=== PATIENT | male | born 1940 | race Caucasian/White ===

== ENCOUNTER 2021-03-04 16:02 | Emergency (ER) | payer MEDICARE ==
[~2021-03-04] VITALS: Ht 185.4 cm; Wt 79.5 kg
[~2021-03-04 16:02] MED LIST: FLO0.4C PO; OMEP-84 PO; ZOC40T PO
--- NOTE | 2021-03-04 18:24 | NUR ---
[phone] DUKE AT [facility] CAN BE REACHED TO NOTIFY IF PATIENT IS DISCHARGED AND HEADED BACK TO FACILITY. PATIENT WAS ATTEMPTING TO GET OUT OF BED- EASILY REORIENTED. HAS LEFT FOR NOW BUT STATES SHE CAN BE REACHED FOR RIDE BACK IF PATIENT IS BEING DISCHARGED.
[2021-03-04 19:46] VITALS: BP 139/93
== END 2021-03-04 19:48 | disposition home or self-care (01) ==
LOC: ER 16:02
DX: M54.2 Cervicalgia (principal); R51.9 Headache, unspecified; G31.83 Neurocognitive disorder with Lewy bodies; F02.80 Dementia in other diseases classified elsewhere, unspecified severity, without behavioral disturbance, psychotic disturbance, mood disturbance, and anxiety; E78.00 Pure hypercholesterolemia, unspecified; G89.29 Other chronic pain; N40.0 Benign prostatic hyperplasia without lower urinary tract symptoms; F03.90 Unspecified dementia, unspecified severity, without behavioral disturbance, psychotic disturbance, mood disturbance, and anxiety; Z90.49 Acquired absence of other specified parts of digestive tract; Z98.890 Other specified postprocedural states; V29.9XXA Motorcycle rider (driver) (passenger) injured in unspecified traffic accident, initial encounter; Z91.81 History of falling; Y93.89 Activity, other specified; Y92.89 Other specified places as the place of occurrence of the external cause; Y99.8 Other external cause status
CPT/HCPCS: 70450; 72125; 99285

== ENCOUNTER 2021-07-11 17:30 | Emergency (ER) | payer MEDICARE ==
[~2021-07-11] VITALS: Ht 182.9 cm; Wt 86.4 kg
[~2021-07-11 17:30] MED LIST changes: +CARB1TAB23 PO; +ESCI-8 PO; -FLO0.4C PO; -OMEP-84 PO; -ZOC40T PO
--- NOTE | 2021-07-11 20:10 | NUR ---
PER [employer] IS [employer]ORT [employer]. [facility] FOR [employer] - AWAITING C/B
--- NOTE | 2021-07-11 20:14 | NUR ---
KAIDEN NICE WITHIN THE HOUR.
[2021-07-11 21:11] VITALS: BP 112/63
== END 2021-07-11 21:18 | disposition home or self-care (01) ==
LOC: ER 17:30
DX: S70.12XA Contusion of left thigh, initial encounter (principal); M25.551 Pain in right hip; G20 Parkinson's disease; E78.00 Pure hypercholesterolemia, unspecified; G89.29 Other chronic pain; Z90.49 Acquired absence of other specified parts of digestive tract; Z90.89 Acquired absence of other organs; Z98.890 Other specified postprocedural states; Z88.8 Allergy status to other drugs, medicaments and biological substances; Z79.899 Other long term (current) drug therapy; W19.XXXA Unspecified fall, initial encounter; Y93.89 Activity, other specified; Y92.89 Other specified places as the place of occurrence of the external cause; Y99.8 Other external cause status
CPT/HCPCS: 72170; 73551; 99284

== ENCOUNTER 2021-11-07 14:08 | Emergency (ER) | payer MEDICARE ==
[~2021-11-07] VITALS: Ht 185.4 cm; Wt 100.0 kg
[2021-11-07] MEDS ORDERED: iohexol 350MG/ML 100ml bottle IV ONE (14:14)
--- NOTE | 2021-11-07 14:45 | NUR ---
TELE NEURO CONSULT DONE, STROKE NURSE AT BEDSIDE
[2021-11-07 15:15] LABS: APTT 31 SECONDS (22-32)
[2021-11-07 15:16] LABS: ALANINE AMINOTRANSFERASE 9 U/L (12-78); ALBUMIN 3.3 G/DL (3.4-5.0); ALBUMIN/GLOBULIN RATIO 1.2 (1.1-1.5); ALKALINE PHOSPHATASE 82 IU/L (46-116); ANION GAP 5 (8-16); ASPARTATE AMINO TRANSFERASE 13 U/L (10-37); BILIRUBIN,TOTAL 0.7 MG/DL (0.1-1.0); BLOOD UREA NITROGEN 17 MG/DL (7-18); CALCIUM 8.1 MG/DL (8.5-10.1); CHLORIDE 107 MMOL/L (99-107); CREATININE 0.81 MG/DL (0.60-1.10); GLUCOSE 96 MG/DL (70-104); POTASSIUM 4.2 MMOL/L (3.5-5.1); SODIUM 141 MMOL/L (135-145); TOTAL CARBON DIOXIDE 28.6 MMOL/L (24-32); TOTAL PROTEIN 6.1 G/DL (6.4-8.2); eGFR > 90 ML/MIN
--- NOTE | 2021-11-07 15:19 | NUR ---
STROKE ALERT LIFE PER DR. MORRIS 1972
[2021-11-07 15:25] LABS: BASOPHILS % (AUTO) 0.4 % (0-1); EOSINOPHILS # (AUTO) 0.1 X10'3 (0-0.9); EOSINOPHILS % (AUTO) 1.7 % (0-6); HEMATOCRIT 38.9 % (42.0-52.0); HEMOGLOBIN 12.6 g/dl (14.0-17.9); LYMPHOCYTES # (AUTO) 0.6 X10'3 (1.1-4.8); LYMPHOCYTES % (AUTO) 15.3 % (21-51); MEAN CORPUSCULAR HEMOGLOBIN 27.2 PG (27.0-31.0); MEAN CORPUSCULAR HGB CONC 32.4 g/dL (33.0-36.5); MEAN CORPUSCULAR VOLUME 83.7 FL (78-98); MEAN PLATELET VOLUME 7.9 FL (7.4-10.4); MONOCYTES # (AUTO) 0.3 X10'3 (0-0.9); MONOCYTES % (AUTO) 8.6 % (2-12); NEUTROPHILS # (AUTO) 2.9 X10'3 (1.8-7.7); PLATELET COUNT 182 X10'3 (140-440); RED BLOOD COUNT 4.65 X10'6 (4.70-6.10); WHITE BLOOD COUNT 3.9 X10'3 (4.5-11.0)
[2021-11-07 18:26] VITALS: BP 127/82
== END 2021-11-07 18:28 | disposition home or self-care (01) ==
LOC: ER 14:08
DX: R53.1 Weakness (principal); R41.0 Disorientation, unspecified; G20 Parkinson's disease; E78.00 Pure hypercholesterolemia, unspecified; G89.29 Other chronic pain; Z90.49 Acquired absence of other specified parts of digestive tract; Z90.89 Acquired absence of other organs; Z98.890 Other specified postprocedural states; Z88.8 Allergy status to other drugs, medicaments and biological substances; Z79.899 Other long term (current) drug therapy
CPT/HCPCS: 36415; 70450; 70496; 70498; 71045; 80053; 84484; 85025; 85610; 85730; 93005; 99285; Q9967

== ENCOUNTER 2021-11-10 19:37 | Inpatient (IN) | payer MEDICARE ==
[~2021-11-10] VITALS: Ht 182.9 cm; Wt 84.1 kg
[2021-11-10] MEDS ORDERED: iohexol 350MG/ML 100ml bottle IV ONE (19:41)
[2021-11-10 19:58] LABS: BASOPHILS % (AUTO) 0.5 % (0-1); EOSINOPHILS # (AUTO) 0.1 X10'3 (0-0.9); EOSINOPHILS % (AUTO) 2.8 % (0-6); HEMATOCRIT 36.5 % (42.0-52.0); HEMOGLOBIN 12.2 g/dl (14.0-17.9); LYMPHOCYTES # (AUTO) 0.9 X10'3 (1.1-4.8); LYMPHOCYTES % (AUTO) 21.5 % (21-51); MEAN CORPUSCULAR HEMOGLOBIN 27.7 PG (27.0-31.0); MEAN CORPUSCULAR HGB CONC 33.6 g/dL (33.0-36.5); MEAN CORPUSCULAR VOLUME 82.6 FL (78-98); MEAN PLATELET VOLUME 7.6 FL (7.4-10.4); MONOCYTES # (AUTO) 0.4 X10'3 (0-0.9); MONOCYTES % (AUTO) 9.3 % (2-12); NEUTROPHILS # (AUTO) 2.7 X10'3 (1.8-7.7); NEUTROPHILS % (AUTO) 65.9 % (42-75); PLATELET COUNT 185 X10'3 (140-440); RED BLOOD COUNT 4.41 X10'6 (4.70-6.10); WHITE BLOOD COUNT 4.1 X10'3 (4.5-11.0)
[2021-11-10 20:09] LABS: ALANINE AMINOTRANSFERASE 7 U/L (12-78); ALBUMIN 3.4 G/DL (3.4-5.0); ALBUMIN/GLOBULIN RATIO 1.3 (1.1-1.5); ALKALINE PHOSPHATASE 72 IU/L (46-116); ANION GAP 7 (8-16); ASPARTATE AMINO TRANSFERASE 13 U/L (10-37); BILIRUBIN,TOTAL 0.8 MG/DL (0.1-1.0); BLOOD UREA NITROGEN 19 MG/DL (7-18); BUN/CREATININE RATIO 21.3 (5.4-32.0); CALCIUM 8.7 MG/DL (8.5-10.1); CHLORIDE 106 MMOL/L (99-107); CREATININE 0.89 MG/DL (0.60-1.10); GLUCOSE 112 MG/DL (70-104); SODIUM 140 MMOL/L (135-145); TOTAL CARBON DIOXIDE 27.5 MMOL/L (24-32); eGFR 82 ML/MIN
[2021-11-10 20:10] LABS: APTT 30 SECONDS (22-32)
[2021-11-11] MEDS ORDERED: magnesium 2GM in 50ml NS 50 ML IV PRN (00:05)
[2021-11-11] MEDS ORDERED: acetaminophen 325mg tablet PO PRN (00:05)
[2021-11-11] MEDS: normal saline 1000ml 1,000 ML IV SCH ×2 (00:05→15:15)
[2021-11-11] MEDS ORDERED: mag hydrox/Alum hydrox/simeth 30ml oral suspension PO PRN (00:05)
[2021-11-11] MEDS ORDERED: potassium Cl 20 mEq SR tablet PO PRN ×2 (00:05)
[2021-11-11] MEDS ORDERED: ondansetron/PF 4mg/2ml inj IV PRN (00:05)
[2021-11-11] MEDS ORDERED: potassium CL 10mEq/100ml bag 100 ML IV PRN (00:05)
[2021-11-11] MEDS ORDERED: magnesium hydroxide 30ml (MOM) UD suspension PO PRN (00:05)
[2021-11-11] MEDS ORDERED: magnesium 4gm in 100ml NS 100 ML IV PRN (00:05)
[2021-11-11] MEDS ORDERED: magnesium Cl slow-release 64mg tablet PO PRN (00:05)
[2021-11-11] MEDS ORDERED: QUET25TA36 PO (00:30)
[2021-11-11] MEDS ORDERED: FLO0.4C PO (00:30)
[2021-11-11] MEDS ORDERED: heparin, porcine 5000 units/ml vial SQ SCH (08:00)
[2021-11-11] MEDS ORDERED: aspirin 81mg, enteric-coated 1 TAB TABLET.DR PO SCH (08:00)
[2021-11-11] MEDS ORDERED: K and/or MAG REPLACEMENT MC SCH (08:00)
--- NOTE | 2021-11-11 08:00 | NUR ---
Pt was incont. of urine. He is confused to date, president, and location. Speech is random. Follows commands for a short amount of time. He likes to put both legs up in the air. Placed a ruiz for a staight cath but kept it in due to pt having a residual of 800ml of hue urine. UA sent to the lab.
[2021-11-11 09:12] LABS: CLARITY,URINE CLEAR (Clear); COLOR,URINE YELLOW (Yellow); GLUCOSE, URINE NEGATIVE (Neg); KETONES,URINE NEGATIVE (Neg); LEUKOCYTE ESTERASE ,URINE NEGATIVE (Neg); NITRITES, URINE NEGATIVE (Neg); OCCULT BLOOD,URINE NEGATIVE (Neg); PH,URINE 6.5 (4.8-8.0); PROTEIN,URINE NEGATIVE (Neg); UROBILINOGEN,URINE 0.2 E.U/dL (0.2-1.0)
[2021-11-11 09:13] LABS: UA COLLECTION TYPE FOLEY CATH
[2021-11-11 09:14] LABS: BASOPHILS % (AUTO) 0.6 % (0-1); EOSINOPHILS # (AUTO) 0.1 X10'3 (0-0.9); HEMATOCRIT 39.3 % (42.0-52.0); HEMOGLOBIN 12.9 g/dl (14.0-17.9); LYMPHOCYTES # (AUTO) 0.7 X10'3 (1.1-4.8); LYMPHOCYTES % (AUTO) 16.7 % (21-51); MEAN CORPUSCULAR HEMOGLOBIN 27.2 PG (27.0-31.0); MEAN CORPUSCULAR HGB CONC 32.8 g/dL (33.0-36.5); MEAN CORPUSCULAR VOLUME 82.8 FL (78-98); MEAN PLATELET VOLUME 7.8 FL (7.4-10.4); MONOCYTES # (AUTO) 0.3 X10'3 (0-0.9); MONOCYTES % (AUTO) 8.6 % (2-12); NEUTROPHILS # (AUTO) 2.9 X10'3 (1.8-7.7); NEUTROPHILS % (AUTO) 72.1 % (42-75); PLATELET COUNT 202 X10'3 (140-440); RED BLOOD COUNT 4.75 X10'6 (4.70-6.10); RED CELL DISTRIBUTION WIDTH 15.2 % (11.5-14.5)
[2021-11-11 09:37] LABS: ALANINE AMINOTRANSFERASE 14 U/L (12-78); ALBUMIN 3.5 G/DL (3.4-5.0); ALBUMIN/GLOBULIN RATIO 1.3 (1.1-1.5); ALKALINE PHOSPHATASE 77 IU/L (46-116); ANION GAP 2 (8-16); ASPARTATE AMINO TRANSFERASE 14 U/L (10-37); BILIRUBIN,TOTAL 0.9 MG/DL (0.1-1.0); BLOOD UREA NITROGEN 13 MG/DL (7-18); BUN/CREATININE RATIO 16.7 (5.4-32.0); CALCIUM 8.8 MG/DL (8.5-10.1); CHLORIDE 107 MMOL/L (99-107); CREATININE 0.78 MG/DL (0.60-1.10); GLUCOSE 90 MG/DL (70-104); POTASSIUM 4.3 MMOL/L (3.5-5.1); SODIUM 139 MMOL/L (135-145); TOTAL CARBON DIOXIDE 29.6 MMOL/L (24-32); TOTAL PROTEIN 6.1 G/DL (6.4-8.2); eGFR > 90 ML/MIN
--- NOTE | 2021-11-11 10:23 | NUR ---
Pt is very confused. He pulled out his ruiz, pulled off his b/p cuff and O2 sat cables. Turned his self side ways in the bed and his legs were up and over the rail. No blood from urethra.
[2021-11-11] MEDS ORDERED: LORazepam 2 mg/ml vial IV ONE (10:45)
--- NOTE | 2021-11-11 11:10 | NUR ---
Sitter at bedside.
[2021-11-11] MEDS ORDERED: LORA-269 PO ×2 (12:02→13:20)
[2021-11-11] MEDS ORDERED: TRAM50TA2 PO (12:02)
--- NOTE | 2021-11-11 12:44 | NUR ---
Spoke with Dr. Leal regarding patients status. Dr. Leal stated that he was working on getting patient back to [facility] and trying to contact that contract administrator over there. He stated that if they were willing to taking him back that he would prescriptions for more medications to help with aggitation to go with. Dr. Leal also gave verbal order to change ativan order for 0.5 mg IV Q4H for anxiety and aggitation to Ativan 1 mg IV Q4H PRN anxiety and aggitation. Will make changes to medication as a verbal order. Ewa RAMOS aware of new order and discussion with Dr. Leal.
[2021-11-11] MEDS ORDERED: QUET-1 PO (13:20)
[2021-11-11] MEDS ORDERED: haloperidol lactate 5mg/ml inj IM ONE (13:25)
[2021-11-11] MEDS ORDERED: LORazepam 2 mg/ml vial IV PRN ×2 (15:00)
[2021-11-11 15:15] VITALS: BP 131/74
--- NOTE | 2021-11-11 15:40 | NUR ---
Report given to medics.
== END 2021-11-11 15:54 | disposition home or self-care (01) | DRG 72 ==
LOC: ER 19:37 → ED HOLD 11-11 00:09
PROVIDERS: ADMIT Internal Medicine; ATTEND Family Medicine
PROC: B3251ZZ Computerized Tomography (CT Scan) of Bilateral Common Carotid Arteries using Low Osmolar Contrast (ICD-10-PCS; principal; 2021-11-10)
PROC: B32G1ZZ Computerized Tomography (CT Scan) of Bilateral Vertebral Arteries using Low Osmolar Contrast (ICD-10-PCS; 2021-11-10)
PROC: B32R1ZZ Computerized Tomography (CT Scan) of Intracranial Arteries using Low Osmolar Contrast (ICD-10-PCS; 2021-11-10)
PROC: B3281ZZ Computerized Tomography (CT Scan) of Bilateral Internal Carotid Arteries using Low Osmolar Contrast (ICD-10-PCS; 2021-11-10)
DX: G93.41 Metabolic encephalopathy (principal); E78.00 Pure hypercholesterolemia, unspecified; G20 Parkinson's disease; Z20.822 Contact with and (suspected) exposure to COVID-19; M25.551 Pain in right hip; R29.810 Facial weakness; F02.80 Dementia in other diseases classified elsewhere, unspecified severity, without behavioral disturbance, psychotic disturbance, mood disturbance, and anxiety; N40.0 Benign prostatic hyperplasia without lower urinary tract symptoms; G89.29 Other chronic pain; Z99.3 Dependence on wheelchair; Z88.8 Allergy status to other drugs, medicaments and biological substances; Z79.899 Other long term (current) drug therapy; Z90.49 Acquired absence of other specified parts of digestive tract
CPT/HCPCS: 36415; 70450; 70496; 70498; 71045; 80053; 81003; 84443; 85025; 85610; 85730; 86885; 86900; 86901; 87635; 93005; 93308; 99285; C9803; G0378; J1644; J2060; J7030; Q9967